=== PATIENT | female | born 2005 | race Caucasian/White ===

== ENCOUNTER 2024-02-20 14:51 | Emergency (ER) | payer OTHER ==
[~2024-02-20] VITALS: Ht 165.1 cm; Wt 77.8 kg
[2024-02-20] MEDS: SODIUM CHLORIDE 0.9% 1000ML 1,000 ML IV STA (16:11)
[2024-02-20] MEDS: FAMOTIDINE 20 MG/2 ML VIAL IV STA (16:12)
[2024-02-20] MEDS: ONDANSETRON HCL INJ 2MG/ML 2ML 2 MG/ML VIAL IV STA (16:12)
[2024-02-20] MEDS ORDERED: IOPAMIDOL 370 MG/ML 100 ML INFUS..BTL INJ ONE (16:47)
[2024-02-20 18:15] VITALS: PULSE 94; RESP 14; TEMP 99.5; O2SAT 97
[2024-02-20] MEDS ORDERED: ONDANSETRON ODT4 MG PO (18:43)
[2024-02-20] MEDS ORDERED: CIPRO500 MG PO (18:43)
== END 2024-02-20 18:55 | disposition home or self-care (01) ==
LOC: FSED 15:00
DX: R11.2 Nausea with vomiting, unspecified (principal); K52.9 Noninfective gastroenteritis and colitis, unspecified; E86.0 Dehydration; D72.829 Elevated white blood cell count, unspecified
CPT/HCPCS: 36415; 71046; 74177; 80048; 80076; 81003; 81025; 84702; 85025; 96374; 96375; 99284; J2405; J7030; Q9967